=== PATIENT | male | born 1975 | race Caucasian/White ===

== ENCOUNTER 2024-06-10 16:53 | Emergency (ER) | payer MEDICAID, SELFPAY ==
[2024-06-10 16:54] VITALS: BMI 32.5
--- NOTE | 2024-06-10 16:57 | EKG_ITS ---
[facility] Test Date: 2024-06-10 Pat Name: TERI BRENNAN Department: Room: - Gender: Male [employer]: : 1975 Requested By: ED Temporary Provider Order Number: [id number] Reading MD: ED Temporary Provider Measurements Intervals [place] Rate: 76 P: 39 ME: 167 QRS: 74 QRSD: 94 T: -75 QT: 378 QTc: 426 Interpretive Statements SINUS RHYTHM POSSIBLE RIGHT ATRIAL ENLARGEMENT [0.25mV P-WAVE] ST DEPRESSION, CONSIDER SUBENDOCARDIAL INJURY [0.1+ mV ST DEPRESSION] Compared to ECG 11/24/2022 16:05:58 ST (T wave) deviation now present Sinus tachycardia no longer present Incomplete right bundle-branch block no longer present T-wave abnormality no longer present /store/S0/[id number].pdf
[2024-06-10 17:03] VITALS: BP 112/77; PULSE 77; RESP 19; TEMP 36.3; O2SAT 95
--- NOTE | 2024-06-10 17:15 | XR_ITS ---
Examination: PA lateral chest 2 views Technique: Upright PA lateral chest 2 views Exam date and time: June 10, 2024 1949 hrs. Indications: Onset chest pain today. Findings: Mild prominence of ventricle Moderate inspiration Minimal opacity right base No pulmonary edema Impression: Suspicious for early pneumonia right base
--- NOTE | 2024-06-10 17:15 | PD.EDRME ---
Rapid Medical Screening Exam RME Arrival date/time: 06/10/24 16:53 48-year-old male presents the emergency department for complaints of trouble breathing Chief Complaint: Shortness of Breath/Dyspnea Vital signs: Vital Signs Temperature 97.4 F 06/10/24 17:03 Pulse Rate 77 06/10/24 17:03 Respiratory Rate 19 06/10/24 17:03 Blood Pressure 112/77 06/10/24 17:03 Pulse Oximetry (%) 95 06/10/24 17:03 Oxygen Delivery Method Room Air 06/10/24 17:03
[2024-06-10 18:16] LABS: Basophils # (Auto) 0.1 Thou/mm3 (0.0-0.2); Basophils % (Auto) 1 % (0-2.5); Eosinophils # (Auto) 0.2 Thou/mm3 (0.0-0.5); Eosinophils % (Auto) 3 % (0-10); Hematocrit 46.9 % (41.0-53.0); Hemoglobin 15.5 g/dL (13.5-16.0); Immature Granulocytes % (Auto) 0 % (0-0); Immature Granulocytes Auto 0.03 Thou/mm3 (0.00-0.00); Lymphocytes % (Auto) 20 % (10-50); Mean Corpuscular Hemoglobin 29.9 pg (25.0-35.0); Mean Corpuscular Volume 90 fL (80-100); Monocytes # (Auto) 0.8 Thou/mm3 (0.0-0.8); Monocytes % (Auto) 9 % (0-12); Neutrophils # (Auto) 6.6 Thou/mm3 (1.8-7.7); Neutrophils % (Auto) 68 % (37-80); Nucleated Red Blood Cell % 0 /100 WBC (0); Platelet Count 328 Thou/mm3 (140-440); RDW Standard Deviation 45.5 fL (35.1-43.9); Red Blood Count 5.19 Miln/mm3 (4.50-5.90); White Blood Count 9.7 Thou/mm3 (3.8-10.6)
[2024-06-10 18:39] LABS: Prothrombin Time 10.7 Seconds (9.0-12.2)
[2024-06-10 18:40] LABS: B-Type Natriuretic Peptide 303 pg/mL (0-100)
[2024-06-10 18:43] LABS: Alanine Aminotransferase 17 U/L (10-49); Albumin, Serum 4.2 gm/dL (3.5-5.0); Albumin/Globulin Ratio 1.4 (1.2-2.2); Alkaline Phosphatase 85 U/L (46-116); Anion Gap 5 (7-16); Aspartate Amino Transferase 24 U/L (0-34); BUN/Creatinine Ratio 12 Ratio (12-20); Bilirubin,Total 0.3 mg/dL (0.3-1.2); Blood Urea Nitrogen 17 mg/dL (9-23); Calcium 9.2 mg/dL (8.3-10.6); Calcium (Corrected) 9.2 mg/dL (8.5-10.1); Carbon Dioxide 26.8 mMol/L (20.0-31.0); Chloride 110 mMol/L (98-107); Creatinine (Component) 1.4 mg/dL (0.6-1.3); Estimated Creatinine Clearance 83.1 mL/min (>60); Globulin 2.9 gm/dL (2.3-3.5); Glucose 70 mg/dL (74-106); Magnesium 2.2 mg/dL (1.6-2.6); Osmolality,Calculated 282 (275-295); Potassium 4.3 mMol/L (3.4-5.1); Sodium 142 mMol/L (136-145); Total Protein 7.1 gm/dL (5.7-8.2); Troponin I < 0.020 ng/mL (0.0-0.045); eGFR > 60 See Note
--- NOTE | 2024-06-10 19:09 | PC.NURSE ---
[facility]
== END 2024-06-10 20:17 | disposition left against medical advice (07) ==
PROVIDERS: Nurse Practitioner Primary Care; Emergency Provider Emergency Medicine; PCP Family Medicine
DX: R06.02 Shortness of breath (principal); R06.00 Dyspnea, unspecified; R07.9 Chest pain, unspecified; R94.31 Abnormal electrocardiogram [ECG] [EKG]; Z53.21 Procedure and treatment not carried out due to patient leaving prior to being seen by health care provider
CPT/HCPCS: 36415; 71046; 80053; 80307; 81001; 83735; 83880; 84484; 85025; 85610; 85730; 99281